=== PATIENT | female | born 1965 | race Caucasian/White ===

== ENCOUNTER → 2020-05-31 | Outpatient (CLI) | payer BC, OTHER ==
[~2020-05-31] MED LIST: AMLODIPINE-ATO1 EAC7 PO; HYDROCODONE-AP1 EAC6 PO; LASIX 20 MG TAB20 MG PO; PROTONIX 20 MG20 M1 PO; SINGULAIR 10 MG10 M1 PO; SYMBICORT160 MCG/4. INH
== END ==
LOC: LAB 10:30
PROVIDERS: ATTEND Family Medicine
DX: Z11.59 Encounter for screening for other viral diseases (principal)

== ENCOUNTER 2020-08-11 10:23 | Emergency (ER) | payer BC, OTHER ==
[~2020-08-11] VITALS: Ht 165.1 cm; Wt 86.2 kg
[2020-08-11] MEDS ORDERED: PERCOCET 5-3251 EACH PO (12:16)
[2020-08-11 12:43] VITALS: BP 128/78
== END 2020-08-11 12:44 | disposition home or self-care (01) ==
LOC: ER 10:23
DX: S62.305A Unspecified fracture of fourth metacarpal bone, left hand, initial encounter for closed fracture (principal); S62.307A Unspecified fracture of fifth metacarpal bone, left hand, initial encounter for closed fracture; S92.352A Displaced fracture of fifth metatarsal bone, left foot, initial encounter for closed fracture; S60.221A Contusion of right hand, initial encounter; I10 Essential (primary) hypertension; K21.9 Gastro-esophageal reflux disease without esophagitis; E78.5 Hyperlipidemia, unspecified; Z79.899 Other long term (current) drug therapy; Z88.8 Allergy status to other drugs, medicaments and biological substances; V49.9XXA Car occupant (driver) (passenger) injured in unspecified traffic accident, initial encounter; Y93.89 Activity, other specified; Y92.89 Other specified places as the place of occurrence of the external cause; Y99.8 Other external cause status